=== PATIENT | male | born 1940 | race Caucasian/White ===

== ENCOUNTER 2023-02-22 17:07 | Emergency (ER) | payer MEDICARE, OTHER ==
[2023-02-22] MEDS ORDERED: Acetaminophen 325 MG TAB ONE (18:01)
[2023-02-22 18:27] LABS: SARS-CoV-2 NAA Rapid Test DETECTED (NotDetected)
[2023-02-22 18:29] LABS: ALT (SGPT) 14 U/L (8-55); AST (SGOT) 19 U/L (5-34); Albumin 3.2 g/dL (3.4-4.8); Alkaline Phosphatase 48 U/L (40-110); Anion Gap 12 mmol/L (10-20); BUN (Urea Nitrogen) 15 mg/dL (8.4-25.7); Bilirubin, Total 0.5 mg/dL (0.2-1.2); Calc. Creatinine Clearance 0 mL/min (70-130); Calcium 8.2 mg/dL (7.8-10.44); Carbon Dioxide 25 mmol/L (23-31); Chloride 108 mmol/L (98-107); Estimated GFR 82; Globulin 2.5 g/dL (2.4-3.5); Glucose 104 mg/dL (83-110); Potassium 3.8 mmol/L (3.5-5.1); Protein, Total 5.7 g/dL (5.8-8.1); Sodium 141 mmol/L (136-145)
[2023-02-22 18:35] LABS: Hematocrit 36.2 % (38.8-50.0); Hemoglobin 12.2 g/dL (13.5-17.5); Mean Corpuscular HGB CONC 33.7 g/dL (32.0-36.0); Mean Corpuscular Hemoglobin 34.3 pg (27.0-33.0); Mean Corpuscular Volume 101.7 fl (81.2-95.1); Mean Platelet Volume 10.2 fl (7.4-10.4); Platelet Count 83 10x3/uL (150-450); RBC Distribution Width 14.3 % (11.5-14.5); Red Blood Cell (RBC) Count 3.56 10x6/uL (4.32-5.72); White Blood Cell (WBC) Count 5.6 10x3/uL (3.5-10.5)
[2023-02-22 19:12] LABS: MDiff Complete? YES
[2023-02-22 19:17] LABS: Band 2 % (5-11); Lymphocytes 16 % (21-51); Monocytes 10 % (0-10); Neutrophil 71 % (42-75); Reactive Lymphocytes 1 % (0-10)
[2023-02-22 19:21] LABS: Platelet Adequacy Comment Appears Decreased; RBC Morph Comment Within Normal Limits
== END 2023-02-22 21:15 | disposition short-term general hospital (02) ==
LOC: CSHERS 17:07
DX: U07.1 COVID-19 (principal); S72.21XA Displaced subtrochanteric fracture of right femur, initial encounter for closed fracture; D69.6 Thrombocytopenia, unspecified; I10 Essential (primary) hypertension; Z79.899 Other long term (current) drug therapy; Z79.82 Long term (current) use of aspirin; W01.0XXA Fall on same level from slipping, tripping and stumbling without subsequent striking against object, initial encounter
CPT/HCPCS: 70450; 71045; 72125; 80053; 85025; 93005; U0002